=== PATIENT | male | born 1945 | race Caucasian/White ===

== ENCOUNTER → 2020-08-18 | Outpatient (CLI) | payer MEDICARE ==
[~2020-08-18] MED LIST: 00186-0370-20 IH; ARICEPT ODT10 MG PO; ASPIRIN 32325 MG/TAB PO; ASPIRIN E.C. 8181 MG PO; ATIVAN 1MG T1 MG/TAB PO; BENADRYL25 M2 PO; BENICAR40 MG PO; CATAPRES 0.1MG0.1 MG PO; CLARITIN10 MG PO; CLONIDINE0.2 MG PO; COLACE 100100 MG/CAP PO; COREG 25MG25 MG/TAB PO; CRESTOR5 MG PO; FERRO-TIME325 MG PO; FLONASEALLERGY NS; FUROSEMIDE20 MG PO; IMODIUM 2MG CAPS2 MG PO; KLOR-CON 1010 MEQ; KLOR-CON SPRIN10 MEQ PO; LASIX 20MG TABL20 MG PO; LIPITOR20 MG PO; MICARDIS80 MG PO; MILK OF MA400 MG/52; MINOXIDIL 10; NAMENDA 10MG TA10 MG PO; NITROQUICK0.4 MG SL; NITROSTAT0.4 MG/TAB SL; NORVASC 10MG10 MG PO; OMEPRAZOLE40 MG PO; ONE-A-DAY ESSE1 EACH PO; PACERONE200 MG PO; PERCOCET 325 MG1 TA2 PO; PLAVIX 75MG TAB75 MG PO; PRIL40 PO; SYSTANE BALANCE10 M1 OP; TOPROL XL 50MG50 MG PO; TYLENOL 500MG500 MG PO; ULTRAM 50MG TAB50 MG PO; ULTRAM ER100 MG PO; XALATAN EYE DROPS OD; XARELTO20 MG PO; ZOFRAN 4MG T4 MG/TAB PO; ZOLOFT 50MG50 MG PO
[2020-08-18 17:12] LABS: COLLECTION METHOD CLEAN CATCH
[2020-08-18 17:27] LABS: MUCOUS Present /lpf; PH 5 (5-8); SQUAMOUS EPITHELIAL None Seen /hpf; URINE APPEARANCE Clear; URINE BACTERIA None Seen /hpf; URINE BILIRUBIN Negative (NEGATIVE); URINE BLOOD Negative (NEGATIVE); URINE CALCIUM OXALATE CRYSTAL Present /hpf; URINE COLOR Yellow; URINE GLUCOSE Negative (NEGATIVE); URINE KETONE Negative (NEGATIVE); URINE LEUKOCYTE ESTERASE Negative (NEGATIVE); URINE NITRATE Negative (NEGATIVE); URINE PROTEIN(semi-quant) Negative (NEGATIVE); URINE RBC None Seen /hpf; URINE UROBILINOGEN Negative (NEGATIVE)
== END ==
LOC: ZLAB.STJ 15:58
PROVIDERS: Internal Medicine Geriatric Medicine
DX: I25.10 Atherosclerotic heart disease of native coronary artery without angina pectoris (principal)

== ENCOUNTER 2020-09-05 14:42 | Emergency (ER) | payer MEDICARE ==
[~2020-09-05] VITALS: Ht 180.3 cm; Wt 100.0 kg
[2020-09-05 14:42] VITALS: TEMP 98
[~2020-09-05 14:42] MED LIST changes: -00186-0370-20 IH; -ARICEPT ODT10 MG PO; -ATIVAN 1MG T1 MG/TAB PO; -BENADRYL25 M2 PO; -CATAPRES 0.1MG0.1 MG PO; -COREG 25MG25 MG/TAB PO; -CRESTOR5 MG PO; -FERRO-TIME325 MG PO; -IMODIUM 2MG CAPS2 MG PO; -KLOR-CON SPRIN10 MEQ PO; -MICARDIS80 MG PO; -MILK OF MA400 MG/52; -NAMENDA 10MG TA10 MG PO; -NITROSTAT0.4 MG/TAB SL; -ONE-A-DAY ESSE1 EACH PO; -PRIL40 PO; -SYSTANE BALANCE10 M1 OP; -TYLENOL 500MG500 MG PO; -ULTRAM 50MG TAB50 MG PO; -ULTRAM ER100 MG PO; -XALATAN EYE DROPS OD; -ZOLOFT 50MG50 MG PO
[2020-09-05] MEDS ORDERED: ATIVAN 1MG T1 MG/TAB PO (15:29)
[2020-09-05] MEDS ORDERED: BENADRYL25 M2 PO (15:30)
[2020-09-05] MEDS ORDERED: SYSTANE BALANCE10 M1 OP (15:30)
[2020-09-05] MEDS ORDERED: ULTRAM 50MG TAB50 MG PO (15:32)
[2020-09-05] MEDS ORDERED: ULTRAM ER100 MG PO (15:33)
[2020-09-05 15:35] LABS: BASO % 0.5 % (0.0-2.0); EOS # 0.1 (0.0-0.7); EOS % 2.1 % (0-4.0); GRAN # 3.1 (1.4-6.5); GRAN % 70.9 % (42.2-75.2); HEMATOCRIT 40.7 % (42.0-52.0); HEMOGLOBIN 11.7 g/dl (13.5-18.0); LYMPH # 0.8 (1.2-3.4); LYMPH % 17.4 % (20.0-51.0); MEAN CELL VOLUME 82 fl (80.0-100.0); MEAN CORPUSCULAR HEMOGLOBIN 24 pg (27.0-31.0); MEAN CORPUSCULAR HGB CONC 29 g/dl (33.0-37.0); MEAN PLATELET VOLUME 10.6 fl (7.4-10.4); MONO # 0.4 (0.1-0.6); MONO % 8.9 % (1.7-9.3); PLATELET COUNT 143 K/mm3 (130-400); RED BLOOD COUNT 4.97 M/mm3 (4.20-5.60); REDCELL DISTRIBUTION WIDTH-CV 22.3 % (11.5-14.5)
[2020-09-05] MEDS ORDERED: IMODIUM 2MG CAPS2 MG PO (15:35)
[2020-09-05] MEDS ORDERED: TYLENOL 500MG500 MG PO (15:35)
[2020-09-05] MEDS ORDERED: XARELTO20 MG PO (15:35)
[2020-09-05] MEDS ORDERED: NITROSTAT0.4 MG/TAB SL (15:36)
[2020-09-05] MEDS ORDERED: LASIX 20MG TABL20 MG PO (15:39)
[2020-09-05] MEDS ORDERED: KLOR-CON SPRIN10 MEQ PO (15:39)
[2020-09-05] MEDS ORDERED: PRIL40 PO (15:39)
[2020-09-05] MEDS ORDERED: MICARDIS80 MG PO (15:41)
[2020-09-05] MEDS ORDERED: CRESTOR5 MG PO (15:41)
[2020-09-05] MEDS ORDERED: ZOLOFT 50MG50 MG PO (15:41)
[2020-09-05] MEDS ORDERED: ONE-A-DAY ESSE1 EACH PO (15:42)
[2020-09-05] MEDS ORDERED: MILK OF MA400 MG/52 (15:42)
[2020-09-05] MEDS ORDERED: NAMENDA 10MG TA10 MG PO (15:42)
[2020-09-05] MEDS ORDERED: FERRO-TIME325 MG PO (15:43)
[2020-09-05] MEDS ORDERED: XALATAN EYE DROPS OD (15:43)
[2020-09-05] MEDS ORDERED: CATAPRES 0.1MG0.1 MG PO (15:44)
[2020-09-05] MEDS ORDERED: COLACE 100100 MG/CAP PO (15:44)
[2020-09-05] MEDS ORDERED: ARICEPT ODT10 MG PO (15:44)
[2020-09-05 15:45] LABS: ALBUMIN 3.7 gm/dL (3.5-5.0); BILIRUBIN,TOTAL 0.6 mg/dL (0.0-1.0); CALCIUM 9.2 mg/dL (8.4-10.2); CREATININE, serum 1.09 (0.66-1.25); POTASSIUM 3.2 mmol/L (3.4-5.0); TOTAL PROTEIN 6.6 gm/dL (6.4-8.2)
[2020-09-05] MEDS ORDERED: COREG 25MG25 MG/TAB PO (15:45)
[2020-09-05] MEDS ORDERED: 00186-0370-20 IH (15:45)
[2020-09-05 15:57] LABS: TROPONIN-I 0.027 ng/mL (0.000-0.035)
[2020-09-05 16:18] LABS: MUCOUS Present /lpf; PH 5 (5-8); SQUAMOUS EPITHELIAL 0-2 /hpf; URINE APPEARANCE Hazy; URINE BACTERIA None Seen /hpf; URINE BILIRUBIN Negative (NEGATIVE); URINE BLOOD Negative (NEGATIVE); URINE COLOR Amber; URINE GLUCOSE Negative (NEGATIVE); URINE KETONE Negative (NEGATIVE); URINE LEUKOCYTE ESTERASE Negative (NEGATIVE); URINE NITRATE Negative (NEGATIVE); URINE PROTEIN(semi-quant) 2+ (NEGATIVE); URINE RBC 0-2 /hpf
[2020-09-05 16:30] LABS: COLLECTION METHOD CLEAN CATCH
[2020-09-05 16:49] VITALS: BP 147/93; PULSE 66
== END 2020-09-05 17:00 | disposition home or self-care (01) ==
LOC: COL.ER 14:42
PROVIDERS: Emergency Medicine
DX: R41.82 Altered mental status, unspecified (principal); F03.90 Unspecified dementia, unspecified severity, without behavioral disturbance, psychotic disturbance, mood disturbance, and anxiety; Z88.0 Allergy status to penicillin; Z87.891 Personal history of nicotine dependence; Z79.01 Long term (current) use of anticoagulants; Z79.51 Long term (current) use of inhaled steroids; Z79.899 Other long term (current) drug therapy

== ENCOUNTER 2021-05-22 20:01 | Inpatient (IN) | payer MEDICARE ==
[~2021-05-22] VITALS: Wt 166.2 kg
[~2021-05-22 20:01] MED LIST changes: +00186-0370-20 IH; +ARICEPT ODT10 MG PO; +ATIVAN 1MG T1 MG/TAB PO; +BENADRYL25 M2 PO; +CATAPRES 0.1MG0.1 MG PO; +COREG 25MG25 MG/TAB PO; +CRESTOR5 MG PO; +FERRO-TIME325 MG PO; +IMODIUM 2MG CAPS2 MG PO; +KLOR-CON SPRIN10 MEQ PO; +MICARDIS80 MG PO; +MILK OF MA400 MG/52; +NAMENDA 10MG TA10 MG PO; +NITROSTAT0.4 MG/TAB SL; +ONE-A-DAY ESSE1 EACH PO; +PRIL40 PO; +SYSTANE BALANCE10 M1 OP; +TYLENOL 500MG500 MG PO; +ULTRAM 50MG TAB50 MG PO; +ULTRAM ER100 MG PO; +XALATAN EYE DROPS OD; +ZOLOFT 50MG50 MG PO
[2021-05-22 20:27] LABS: BASO % 0.2 % (0.0-2.0); EOS % 0.2 % (0.0-4.0); GRAN # 4.7 K/mm3 (1.4-6.5); GRAN % 86.8 % (42.2-75.2); HEMOGLOBIN 11.2 g/dl (13.5-18.0); LYMPH # 0.2 K/mm3 (1.2-3.4); LYMPH % 4.1 % (20.0-51.0); MEAN CELL VOLUME 86 fl (80.0-100.0); MEAN CORPUSCULAR HEMOGLOBIN 27 pg (27-31); MEAN CORPUSCULAR HGB CONC 31 g/dl (33.0-37.0); MEAN PLATELET VOLUME 10.1 fl (7.4-10.4); MONO # 0.5 K/mm3 (0.1-0.6); MONO % 8.3 % (1.7-9.3); PLATELET COUNT 128 K/mm3 (130-400); RED BLOOD COUNT 4.21 M/mm3 (4.20-5.60)
[2021-05-22 20:32] LABS: INR 2.6 (0.8-3.0); PROTHROMBIN TIME 29.6 SECONDS (9.7-12.8)
[2021-05-22 20:43] LABS: COLLECTION METHOD CLEAN CATCH
[2021-05-22 20:45] LABS: ALBUMIN 3.5 gm/dL (3.4-4.8); BILIRUBIN,TOTAL 0.7 mg/dL (0.2-1.2); C-REACTIVE PROTEIN 3.25 mg/dL (0.00-0.50); CALCIUM 8.8 mg/dL (8.4-10.2); CREATININE, serum 0.88 mg/dL (0.72-1.25); POTASSIUM 3.2 mmol/L (3.5-4.5); TOTAL PROTEIN 6.3 gm/dL (6.2-8.1)
[2021-05-22] MEDS ORDERED: ALLEGRA 180MG180 MG PO (20:45)
[2021-05-22] MEDS ORDERED: ASPIRIN 81M81 MG/TA2 PO (20:45)
[2021-05-22 20:48] LABS: MUCOUS Present (NOT PRESENT); PH 5 (5-8); SQUAMOUS EPITHELIAL None Seen /hpf (0-10); URINE APPEARANCE Clear (CLEAR/HAZY); URINE BACTERIA None Seen /hpf (NONE SEEN); URINE BILIRUBIN Negative (NEGATIVE); URINE BLOOD Negative (NEGATIVE); URINE COLOR Yellow (YELLOW); URINE GLUCOSE Negative (NEGATIVE); URINE KETONE Negative (NEGATIVE); URINE LEUKOCYTE ESTERASE Negative (NEGATIVE); URINE NITRATE Negative (NEGATIVE); URINE PROTEIN(semi-quant) Negative (NEGATIVE); URINE RBC 0-2 /hpf (0-2); URINE UROBILINOGEN Negative (NEGATIVE)
[2021-05-22] MEDS ORDERED: CRESTOR5 MG PO (20:48)
[2021-05-22] MEDS ORDERED: MICARDIS80 MG PO (20:50)
[2021-05-22] MEDS ORDERED: MELATIN 3 MG-11 TAB PO (20:50)
[2021-05-22] MEDS ORDERED: MIRALAX PA17 GM/Dose PO (20:51)
[2021-05-22] MEDS ORDERED: MINIPRESS2 MG PO (20:51)
[2021-05-22] MEDS ORDERED: NORVASC 5MG5 MG/TAB PO (20:52)
[2021-05-22] MEDS ORDERED: K-TAB10 PO (20:53)
[2021-05-22] MEDS ORDERED: SEROQUEL XR50 MG PO (20:54)
[2021-05-22] MEDS ORDERED: SEROQUEL 2525 MG/TAB PO (20:54)
[2021-05-22 20:55] LABS: TROPONIN-I 0.047 ng/mL (0.00-0.033)
[2021-05-22] MEDS ORDERED: SYSTANE 0.4%-0.1 SOL OP (20:55)
[2021-05-22] MEDS ORDERED: DESYREL 100MG100 MG PO (20:56)
[2021-05-22] MEDS ORDERED: ZOLOFT 50MG50 MG PO (20:57)
[2021-05-22] MEDS ORDERED: XALATAN EYE DROPS OD (20:57)
[2021-05-22] MEDS ORDERED: ZYPREXA20 MG PO (20:58)
[2021-05-22] MEDS ORDERED: ZYPREXA 5MG5 MG PO (20:58)
[2021-05-22] MEDS ORDERED: XARELTO20 MG PO (20:58)
[2021-05-22] MEDS ORDERED: ULTRAM 50MG TAB50 MG PO (22:14)
[2021-05-22] MEDS ORDERED: BIOFREEZE 0.2%-1 GE1 TOP (22:15)
[2021-05-22] MEDS ORDERED: CBD TOP (22:15)
[2021-05-22] MEDS ORDERED: CBD PO (22:16)
[2021-05-22 23:59] VITALS: BP 155/52; PULSE 67; TEMP 98.8
--- NOTE | 2021-05-23 00:30 | NUR ---
Patient arrived to the unit in bed, alert but disoriented. Medications provided, NS started 75ml/hr. Fall precautions started, telemetry placed. Pt unable to follow comands or answer questions. Random speach. Right now resting. Continue monitoring.
[2021-05-23 04:20] LABS: GRAN # 2.7 K/mm3 (1.4-6.5); GRAN % 83.9 % (42.2-75.2); LYMPH # 0.3 K/mm3 (1.2-3.4); LYMPH % 8.2 % (20.0-51.0); MEAN CELL VOLUME 86 fl (80.0-100.0); MEAN CORPUSCULAR HGB CONC 31 g/dl (33.0-37.0); MEAN PLATELET VOLUME 11.3 fl (7.4-10.4); MONO # 0.2 K/mm3 (0.1-0.6); MONO % 7.6 % (1.7-9.3); PLATELET COUNT 103 K/mm3 (130-400); RED BLOOD COUNT 3.72 M/mm3 (4.20-5.60); REDCELL DISTRIBUTION WIDTH-CV 19.4 % (11.5-14.5)
[2021-05-23 04:21] LABS: HEMATOCRIT 31.9 % (42.0-52.0); HEMOGLOBIN 9.9 g/dl (13.5-18.0); MEAN CORPUSCULAR HEMOGLOBIN 27 pg (27-31)
[2021-05-23 04:26] VITALS: BP 127/47; PULSE 63; TEMP 102.6
[2021-05-23 04:26] LABS: INR 2.9 (0.8-3.0); PROTHROMBIN TIME 32.3 SECONDS (9.7-12.8)
[2021-05-23 04:51] LABS: ARTERIAL BLD GAS O2 SATURATION 95.9 % (92-100); ARTERIAL BLD GAS TCO2 CT 25.7; ARTERIAL BLOOD GAS BASE EXCESS 2.4 (-2-2); ARTERIAL BLOOD GAS HCO3 24.8 meq/L (22-26); ARTERIAL BLOOD GAS PCO2 30.8 mmHg (35-45); ARTERIAL BLOOD GAS PO2 73.7 mmHg (80-100); ARTERIAL BLOOD GAS pH 7.52 (7.35-7.45)
[2021-05-23 05:17] LABS: BILIRUBIN,TOTAL 0.6 mg/dL (0.2-1.2); CALCIUM 8.6 mg/dL (8.4-10.2); CREATININE, serum 0.79 mg/dL (0.72-1.25); POTASSIUM 3.1 mmol/L (3.5-4.5); TOTAL PROTEIN 5.4 gm/dL (6.2-8.1)
[2021-05-23 05:22] LABS: TROPONIN-I 6 HR POST INITIAL 0.064 ng/mL (0.00-0.033)
--- NOTE | 2021-05-23 05:30 | NUR ---
PT with fever, suppository Tylenol provided. While removing the brief, noticed coagulated blood around the penis. Hygiene provided. No further fresh blood noticed.
--- NOTE | 2021-05-23 06:32 | NUR ---
Pt received all his medications once arrived to the unit. He has been drowsy and difficult to arouse, reported to Joyce. No more PO Meds provided. Report will be given to day RN.
[2021-05-23 08:33] VITALS: BP 125/43; PULSE 61; TEMP 102.9
--- NOTE | 2021-05-23 11:04 | NUR ---
PT RESTING IN BED. MORNING MEDICATIONS GIVEN. SHIFT ASSESSMENT COMPLETED. RN UNABLE TO AROUSE PT, HE DOES RESPOND TO PAIN. VSS. PASSED A LARGE BLOOD CLOT FROM PENIS, WILL NOTIFY PROVIDER. CONTINUING TO MONITOR.
[2021-05-23 11:52] VITALS: BP 125/51; PULSE 67; TEMP 101.1
--- NOTE | 2021-05-23 12:20 | NUR ---
Plan is for patient to return to [facility] when able. SW called the memory care to find out what their protocols are for Covid Positive Patients. Nurse at the Memory unit indicated that she does not know and najma call patient case manager back with information. SW spoke with on discharge to the unit. reports that there is not enough staff at the nit to care for the patient and that they have cameras in the grabiel and noticed no one had been in to change the patient and or care for the patient for the entire day on tuesday and that is what initial brought her to have the patient brought to the hospital. indicated that she is doing Chemo and she can not go in and help out the patient. Educated that we can not approve client to stay if he does have a safe and appropriate transfer facility. Educated that we are waiting on what that facility has available to take care of patient in at the memory unit. Will follow up with and Memory Unit.
[2021-05-23 15:56] VITALS: BP 140/68; PULSE 78; TEMP 98.1
[2021-05-23 20:17] VITALS: BP 137/64; PULSE 66; TEMP 97.7
[2021-05-24 00:24] VITALS: BP 157/60; PULSE 60; TEMP 99.1
[2021-05-24 04:34] VITALS: BP 169/69; PULSE 69; TEMP 99.2
--- NOTE | 2021-05-24 05:34 | NUR ---
pt with low grade temps this shift, remains lethargic not taking anything by mouth, all po meds held, not swallowing saliva, turned side to side q2, de la fuente continues to drain dark socorro urine with streaks of blood present. IVF infusing per piv @75cc/hr. updated pt's per phone last evening, she does not want pt dismissed until the blood in urine is looked into further.
[2021-05-24 07:40] VITALS: BP 166/80; PULSE 68; TEMP 98.1
--- NOTE | 2021-05-24 10:25 | NUR ---
PT RESTING IN BED. MORNING MEDICATIONS GIVEN. SHIFT ASSESSMENT COMPLETED. PT DOES NOT RESPOND TO QUESTIONS OR FOLLOW COMMANDS. NS RUNNING AT 50ML/HR. CONTINUING TO MONITOR.
[2021-05-24 11:53] VITALS: BP 138/60; PULSE 59; TEMP 97.2
[2021-05-24 15:55] VITALS: BP 153/70; PULSE 70; TEMP 97.8
[2021-05-24 20:39] VITALS: BP 168/70; PULSE 61; TEMP 98
--- NOTE | 2021-05-24 21:53 | NUR ---
Patient resting in bed with eyes closed. Patient drowsy and difficutly to arouse. Patient does not follow commands or answer any questions. PO meds not able to give due to patient not alert enough to take meds. NS running at 50ml/hr per MAR. Perez catheter patent and draining bloody urine. Call light in reach. Will continue to monitor.
[2021-05-25 00:03] VITALS: BP 175/63; PULSE 67; TEMP 98
[2021-05-25 04:28] VITALS: BP 146/65; PULSE 62; TEMP 97.9
--- NOTE | 2021-05-25 04:38 | NUR ---
Patient's BP 175/63 at midnight. Patient resting in bed comfortably. Does not appear to be symptomatic. PRN hydralazine 10mg IV given per MAR. BP 146/65, HR 62 at 4am. Call light in reach. Bed alarms on. Will continue to monitor.
[2021-05-25 07:27] LABS: HEMOGLOBIN 10.4 g/dl (13.5-18.0); MEAN CELL VOLUME 85 fl (80.0-100.0); MEAN CORPUSCULAR HEMOGLOBIN 27 pg (27-31); MEAN CORPUSCULAR HGB CONC 32 g/dl (33.0-37.0); MEAN PLATELET VOLUME 11.3 fl (7.4-10.4); PLATELET COUNT 91 K/mm3 (130-400); RED BLOOD COUNT 3.81 M/mm3 (4.20-5.60)
[2021-05-25 07:30] LABS: HEMATOCRIT 32.5 % (42.0-52.0)
[2021-05-25 07:37] LABS: CALCIUM 8.3 mg/dL (8.4-10.2); CREATININE, serum 0.68 mg/dL (0.72-1.25); MAGNESIUM 1.9 mg/dL (1.6-2.6); POTASSIUM 3.6 mmol/L (3.5-4.5)
[2021-05-25 07:59] VITALS: BP 191/68; PULSE 62; TEMP 97.8
[2021-05-25 08:44] LABS: LYMPHOCYTE 34 % (20.0-51.0); NEUTROPHILS 54 % (42.0-75.2); OVALOCYTES 2+; PLATELET ESTIMATE DECREASED (NORMAL)
--- NOTE | 2021-05-25 11:22 | NUR ---
Scheduled medications given. Shift assessment performed. Patient very drowsy, and not oriented. Unable to follow commands. Currently on RA. BP elevated, prn medication given. All other VSS. No s/s of pain or discomfort at this time. Perez catheter in place. Securement device in use, no kinks in tubing. Call light in reach. Fall percautions in place.
[2021-05-25 11:35] VITALS: BP 134/69; PULSE 60; TEMP 97.5
--- NOTE | 2021-05-25 13:31 | NUR ---
PANCHO faxed updates to Marian at [facility].
[2021-05-25 15:40] VITALS: BP 133/59; PULSE 60; TEMP 97.5
--- NOTE | 2021-05-25 17:48 | NUR ---
Patient has had an uneventful day. VSS. Patient tired, but arousable. No s/s of pain or discomfort. Fall percautions in place. Perez in place. Securement device in use, no kinks in tubing. Call light in reach.
[2021-05-25 20:22] VITALS: BP 140/63; PULSE 61; TEMP 98.5
--- NOTE | 2021-05-26 00:20 | NUR ---
Patient resting in bed with eyes closed. Patient appears very tired and drowsy. Patient arousable with verbal and tactile stimulation. Patient not oriented. Patient does not follow commands or answer questions. All scheduled meds crushed and mixed in apple sauce. Patient took medications without difficulty. Perez patent and draining well. Call light in reach. Bed alarms on. Will continue to monitor.
[2021-05-26 00:57] VITALS: BP 135/61; PULSE 61; TEMP 97.6
[2021-05-26 04:23] VITALS: BP 147/66; PULSE 74; TEMP 97.6
[2021-05-26 08:19] VITALS: BP 140/69; PULSE 64; TEMP 97.8
[2021-05-26 11:14] VITALS: BP 137/66; PULSE 86; TEMP 97.6
--- NOTE | 2021-05-26 11:41 | NUR ---
Scheduled medications given. Shift assessment performed. Patient alseep, but is able to be aroused. Perez catheter in place, securment device in use, no kinks in tubing. No s/s of pain, discomfort, SOA, or further needs at this time. Call light in reach. VSS. Fall percautions in place.
--- NOTE | 2021-05-26 11:51 | NUR ---
The hospitalist notified PANCHO that the patient may be ready to discharge tomorrow, 05/27. PANCHO contacted [facility] to notify. The licensing officer answered and reports that she will notify his RN's of this. She reports that his RN's are out at this time. PANCHO attempted to contact the patient's , Ulises, to update. PANCHO left her a voicemail. [facility] faxed [facility] updates.
--- NOTE | 2021-05-26 12:39 | NUR ---
The patient's , Ulises, returned PANCHO's phone call. PANCHO informed her of possible discharge tomorrow. Ulises verbalized understanding and was in agreement to the plan.
[2021-05-26 16:00] VITALS: BP 147/66; PULSE 86; TEMP 97
--- NOTE | 2021-05-26 18:12 | NUR ---
Patient has had an ok day. More alert today than in previous shifts. Not oriented. Perez catheter DC'd, balloon intact. No s/s of pain, discomfort, SOA, or further needs at this time. Call light in reach. VSS. Fall percautions in place.
[2021-05-26 20:47] VITALS: BP 150/70; PULSE 65; TEMP 97.9
--- NOTE | 2021-05-26 22:07 | NUR ---
Yumi resting in bed with eyes closed upon enter the room. Patient easily arousable with verbal stimulation. Patient is more alert tonight than previous two nights. Patient not oriented. Not following directions or anwering questions. Patient has some random speaking doesn't make sense. Assisted patient to have dinner. Patient drank 1 bottle of Ensure and some food. Medications crushed and mixed in pudding. Patient took medications without difficulty. Brief dry and clean at this time. Call light in reach. Bed alarms on. Fall precaution maintained. Will continue to monitor.
[2021-05-27 00:18] VITALS: BP 134/69; PULSE 66; TEMP 97.7
[2021-05-27 04:16] VITALS: BP 138/65; PULSE 70; TEMP 97.8
--- NOTE | 2021-05-27 05:31 | NUR ---
Patient had large void this morning. Incontinent brief changed and kisha-care provided. Patient repositioned at this time. Call light in reach. Bed alarms on. Will continue to monitor.
[2021-05-27 08:18] VITALS: BP 111/52; PULSE 64; TEMP 98.4
[2021-05-27 09:22] LABS: HEMOGLOBIN 11.4 g/dl (13.5-18.0); MEAN CELL VOLUME 86 fl (80.0-100.0); MEAN CORPUSCULAR HEMOGLOBIN 27 pg (27-31); MEAN CORPUSCULAR HGB CONC 31 g/dl (33.0-37.0); MEAN PLATELET VOLUME 10.7 fl (7.4-10.4); PLATELET COUNT 117 K/mm3 (130-400); RED BLOOD COUNT 4.25 M/mm3 (4.20-5.60); REDCELL DISTRIBUTION WIDTH-CV 18.4 % (11.5-14.5)
[2021-05-27 09:25] LABS: HEMATOCRIT 36.5 % (42.0-52.0)
[2021-05-27 09:33] LABS: C-REACTIVE PROTEIN 1.51 mg/dL (0.00-0.50); CALCIUM 8.6 mg/dL (8.4-10.2); CREATININE, serum 0.61 mg/dL (0.72-1.25); MAGNESIUM 2.2 mg/dL (1.6-2.6); POTASSIUM 3.7 mmol/L (3.5-4.5)
[2021-05-27 10:37] LABS: BAND 3 % (0-10); LYMPHOCYTE 29 % (20.0-51.0); METAMYELOCYTE 2 % (0-0); NEUTROPHILS 58 % (42.0-75.2)
[2021-05-27 10:38] LABS: OVALOCYTES 2+; PLATELET ESTIMATE DECREASED (NORMAL)
[2021-05-27] MEDS ORDERED: NORVASC 10MG10 MG PO (11:04)
[2021-05-27] MEDS ORDERED: DECADRON6 MG PO (11:19)
[2021-05-27 11:45] VITALS: BP 149/66; PULSE 64; TEMP 97.8
--- NOTE | 2021-05-27 13:32 | NUR ---
The clinical team is ready to discharge the patient today. PANCHO notified Monae at [facility]. Monae reports that they are able to take the patient back today. The patient is to discharge today, 05/27, back to [facility]. [facility] PANCHO informed the patient's RN and his , Ulises, of the time. PANCHO also read the IM form outloud to Ulises over the phone. Ulises verbalized understanding and gave PANCHO approval to sign the form on her behalf. No additional needs at this time.
[2021-05-27 14:21] VITALS: BP 149/66; PULSE 64; TEMP 97.8
--- NOTE | 2021-05-27 15:17 | NUR ---
Scheduled medications given. Shift assessment performed. Patient currently on RA. No s/s of pain or discomfort. VSS. Patient Alert, but not oriented. Combative during cares. Patient transferred to wheelchair with assistance. Patient unable to stand and help with transfers. Patient escorted from the building by [facility] staff and [facility] staff. [facility] staff transfering. Report called to HARDIK Licona.
== END 2021-05-27 15:20 | disposition home or self-care (01) | DRG 177 ==
LOC: COL.ER 20:01 → MEDICAL 21:46
PROVIDERS: Nurse Practitioner; Nurse Practitioner Family; ADMIT Internal Medicine
DX: U07.1 COVID-19 (principal); J12.82 Pneumonia due to coronavirus disease 2019; F03.91 Unspecified dementia, unspecified severity, with behavioral disturbance; G93.40 Encephalopathy, unspecified; T83.83XA Hemorrhage due to genitourinary prosthetic devices, implants and grafts, initial encounter; I48.91 Unspecified atrial fibrillation; E78.5 Hyperlipidemia, unspecified; I11.0 Hypertensive heart disease with heart failure; I25.10 Atherosclerotic heart disease of native coronary artery without angina pectoris; I50.9 Heart failure, unspecified; G47.30 Sleep apnea, unspecified; K21.9 Gastro-esophageal reflux disease without esophagitis; Z66 Do not resuscitate; G89.29 Other chronic pain; F32.A Depression, unspecified; G47.00 Insomnia, unspecified; R31.9 Hematuria, unspecified; E87.6 Hypokalemia; F41.1 Generalized anxiety disorder; H40.9 Unspecified glaucoma; Y73.1 Therapeutic (nonsurgical) and rehabilitative gastroenterology and urology devices associated with adverse incidents; Z95.5 Presence of coronary angioplasty implant and graft; Z95.0 Presence of cardiac pacemaker; Z88.0 Allergy status to penicillin; Z87.891 Personal history of nicotine dependence; Z79.82 Long term (current) use of aspirin
CPT/HCPCS: 99222-AI; 99232-AI; 99233-AI; 99239; J0360; J0696; J3480; J7030; J8540

== ENCOUNTER 2021-07-17 12:42 | Emergency (ER) | payer MEDICARE ==
[~2021-07-17 12:42] MED LIST changes: +ALLEGRA 180MG180 MG PO; +ASPIRIN 81M81 MG/TA2 PO; +BIOFREEZE 0.2%-1 GE1 TOP; +CBD PO; +CBD TOP; +DECADRON6 MG PO; +DESYREL 100MG100 MG PO; +K-TAB10 PO; +MELATIN 3 MG-11 TAB PO; +MINIPRESS2 MG PO; +MIRALAX PA17 GM/Dose PO; +NORVASC 5MG5 MG/TAB PO; +SEROQUEL 2525 MG/TAB PO; +SEROQUEL XR50 MG PO; +SYSTANE 0.4%-0.1 SOL OP; +ZYPREXA 5MG5 MG PO; +ZYPREXA20 MG PO
[2021-07-17 12:44] VITALS: TEMP 98.5
[2021-07-17 13:25] VITALS: BP 142/80; PULSE 80
== END 2021-07-17 13:25 ==
LOC: COL.ER 12:42
DX: R04.0 Epistaxis (principal); F03.90 Unspecified dementia, unspecified severity, without behavioral disturbance, psychotic disturbance, mood disturbance, and anxiety; Z79.01 Long term (current) use of anticoagulants; Z91.040 Latex allergy status

== ENCOUNTER 2021-08-21 12:24 | Observation (INO) | payer MEDICARE ==
[~2021-08-21] VITALS: Ht 182.9 cm; Wt 79.5 kg
[2021-08-21 12:55] LABS: BASO % 0.4 % (0.0-2.0); GRAN # 1.8 K/mm3 (1.4-6.5); GRAN % 75.6 % (42.2-75.2); LYMPH # 0.3 K/mm3 (1.2-3.4); MEAN CELL VOLUME 87 fl (80.0-100.0); MEAN CORPUSCULAR HGB CONC 30 g/dl (33.0-37.0); MEAN PLATELET VOLUME 10.3 fl (7.4-10.4); MONO # 0.3 K/mm3 (0.1-0.6); MONO % 11.6 % (1.7-9.3); PLATELET COUNT 151 K/mm3 (130-400); RED BLOOD COUNT 3.36 M/mm3 (4.20-5.60); REDCELL DISTRIBUTION WIDTH-CV 15.8 % (11.5-14.5)
[2021-08-21 12:56] LABS: HEMATOCRIT 29.1 % (42.0-52.0); HEMOGLOBIN 8.8 g/dl (13.5-18.0); MEAN CORPUSCULAR HEMOGLOBIN 26 pg (27-31)
[2021-08-21 13:10] LABS: CALCIUM 8.3 mg/dL (8.4-10.2); CREATININE, serum 0.77 mg/dL (0.72-1.25); POTASSIUM 3.5 mmol/L (3.5-4.5)
[2021-08-21 13:55] LABS: COLLECTION METHOD CATHETER
[2021-08-21 14:08] LABS: MUCOUS Present (NOT PRESENT); PH 6 (5-8); SQUAMOUS EPITHELIAL 0-2 /hpf (0-10); URINE APPEARANCE Hazy (CLEAR/HAZY); URINE BACTERIA Occasional /hpf (NONE SEEN); URINE BILIRUBIN Negative (NEGATIVE); URINE BLOOD 1+ (NEGATIVE); URINE COLOR Yellow (YELLOW); URINE GLUCOSE Negative (NEGATIVE); URINE KETONE Negative (NEGATIVE); URINE LEUKOCYTE ESTERASE 2+ (NEGATIVE); URINE NITRATE Positive (NEGATIVE); URINE PROTEIN(semi-quant) Negative (NEGATIVE); URINE RBC 0-2 /hpf (0-2); URINE UROBILINOGEN Negative (NEGATIVE)
--- NOTE | 2021-08-21 17:48 | NUR ---
PATIENT RECIEVED FROM ED. A&O X2, SLIGHT CONFUSION NOTED. PATIENT DOES HAVE KNOWN DEMENTIA. INFORMED OF 2 HEALING PRESSURE SORES TO BUTTOCK AREA. NO OTHER SKIN ISSUES AT THIS TIME. INCONTIENT. ABLE TO AMUBLATE ON OWN BUT VERY UNSTEADY, WILL USE BED ALARMS FOR SAFETY. DOES HAVE HISTORY OF COMBATIVE BEHAVIOR AT TIMES.
[2021-08-21 19:37] VITALS: BP 144/53; PULSE 63; TEMP 98.7
[2021-08-22 03:54] VITALS: BP 142/73; PULSE 64; TEMP 98
--- NOTE | 2021-08-22 05:19 | NUR ---
THIS NURSE HUNG D5 1/2 NS THIS SHIFT IT WAS SCANNED PREVIOUS SHIFT BUT NOT GIVEN REGARDLESS OF YES ON ADMINISTRATION NOR WAS IT REPORTED TO THIS NURSE. PT HAS COMMENCED D5 1/2 NS OF 399 THIS AM.
[2021-08-22 06:20] LABS: BASO % 0.5 % (0.0-2.0); EOS % 0.5 % (0.0-4.0); GRAN # 1.4 K/mm3 (1.4-6.5); GRAN % 63.7 % (42.2-75.2); LYMPH # 0.5 K/mm3 (1.2-3.4); LYMPH % 20.4 % (20.0-51.0); MEAN CELL VOLUME 86 fl (80.0-100.0); MEAN CORPUSCULAR HGB CONC 30 g/dl (33.0-37.0); MONO # 0.3 K/mm3 (0.1-0.6); MONO % 14.9 % (1.7-9.3); PLATELET COUNT 135 K/mm3 (130-400); RED BLOOD COUNT 3.25 M/mm3 (4.20-5.60); REDCELL DISTRIBUTION WIDTH-CV 15.7 % (11.5-14.5)
[2021-08-22 06:25] LABS: HEMATOCRIT 27.8 % (42.0-52.0); HEMOGLOBIN 8.3 g/dl (13.5-18.0); MEAN CORPUSCULAR HEMOGLOBIN 26 pg (27-31)
--- NOTE | 2021-08-22 06:32 | NUR ---
PT HAD UNEVENTFUL NIGHT LAST NIGHT, PT COOPERATIVE AND PLEASANT, PT CLEANED AND DRIED, LINENS CHANGED. PT REPOSITIONED Q2. ALL NEEDS MET.
[2021-08-22 06:38] LABS: CALCIUM 8.4 mg/dL (8.4-10.2); CREATININE, serum 0.62 mg/dL (0.72-1.25); POTASSIUM 3.4 mmol/L (3.5-4.5)
[2021-08-22 08:02] VITALS: BP 146/77; PULSE 84; TEMP 99.2
[2021-08-22 08:37] VITALS: BP 145/70; PULSE 62; TEMP 98.5
--- NOTE | 2021-08-22 08:39 | NUR ---
Assessment completed, patient is lethargic / he will somewhat open his eyes to light touch and voice but does not stay awake, vital signs are stable, does not appear to be in any acute pain or discomfort, breathing is easy and non-labored, lungs are CTA, heart RRR/AV paced on tele, distal pulses are palpable, patient not awake enought at this time to take PO meds or PO intake in general/ will try again in a while if he becomes more alert, bed alarm is on, call light in reach, he is clean and dry at this time, will continue to monitor
[2021-08-22 13:30] VITALS: BP 151/59; PULSE 61; TEMP 98.4
--- NOTE | 2021-08-22 14:50 | NUR ---
SW met with pt to complete intake,daughter was present and answered all questions due to pt has dementia. The pt lives at [facility]. He has a , but she is sick with 1st stage cancer. His DPOA-HC is his daughter griffin, [phone] and she is a nurse. She reports she has two other sister but they are not involved and not speaking to there parents. She reports he needs help with dressing and sometimes eating (forgets how to use a fork). His PCP is Dr. Rodriguez and gets medications from [facility]. Griffin expressed that she would like her father to be moved to [place] since his lives in [place]. DC: Bk to [facility]??
--- NOTE | 2021-08-22 15:38 | NUR ---
SW faxed referral to [place] for pt daughter just incase she wants to moved pt from [facility] on her own.
[2021-08-22 18:05] VITALS: BP 130/47; PULSE 60; TEMP 97.9
[2021-08-22 20:19] VITALS: BP 138/59; PULSE 59; TEMP 97.6
[2021-08-23 00:02] VITALS: BP 146/68; PULSE 61; TEMP 97.7
[2021-08-23 05:11] VITALS: BP 162/72; PULSE 71; TEMP 97.5
--- NOTE | 2021-08-23 05:30 | NUR ---
PT HAD UNEVENTFUL NIGHT THIS SHIFT, SLEPT MAJORITY OF THE SHIFT. PT REPOSITONED Q2. PT PROVIDED BED BATH THIS SHIFT.COGNITIVE REMAINS THE SAME. ALL NEEDS MET THIS SHIFT. BED ALARM ON. PT VISIBLE TO NURSES STATION.
[2021-08-23 06:15] LABS: BASO % 0.4 % (0.0-2.0); EOS # 0.1 K/mm3 (0.0-0.7); EOS % 2.4 % (0.0-4.0); GRAN # 1.3 K/mm3 (1.4-6.5); LYMPH # 0.7 K/mm3 (1.2-3.4); LYMPH % 26.9 % (20.0-51.0); MEAN CELL VOLUME 88 fl (80.0-100.0); MEAN CORPUSCULAR HGB CONC 30 g/dl (33.0-37.0); MEAN PLATELET VOLUME 10.8 fl (7.4-10.4); MONO # 0.5 K/mm3 (0.1-0.6); MONO % 18.9 % (1.7-9.3); PLATELET COUNT 137 K/mm3 (130-400); RED BLOOD COUNT 3.73 M/mm3 (4.20-5.60); REDCELL DISTRIBUTION WIDTH-CV 15.4 % (11.5-14.5)
[2021-08-23 06:17] LABS: HEMATOCRIT 32.7 % (42.0-52.0); HEMOGLOBIN 9.8 g/dl (13.5-18.0); MEAN CORPUSCULAR HEMOGLOBIN 26 pg (27-31)
[2021-08-23 06:30] LABS: CALCIUM 8.2 mg/dL (8.4-10.2); CREATININE, serum 0.64 mg/dL (0.72-1.25); POTASSIUM 3.9 mmol/L (3.5-4.5)
[2021-08-23 07:37] VITALS: BP 173/79; PULSE 58; TEMP 97.7
--- NOTE | 2021-08-23 08:16 | NUR ---
Assessment completed, patient drowsny but more easily arousable today, he does not appear to be in any acute pain or discomfort, vital signs remain stable, heart RRR/ Paced on tele, lungs CTA/ no resp.difficulty noted, replacing potassium per protocol, repositioning and providing incontinent cares as needed, bed alarm is on and call light in reach, will continue to monitor closely
[2021-08-23 11:42] VITALS: BP 153/693; PULSE 63; TEMP 97.3
[2021-08-23 16:17] VITALS: BP 124/53; PULSE 61; TEMP 97.5
[2021-08-23 20:07] VITALS: BP 140/74; PULSE 79; TEMP 97.4
[2021-08-24] VITALS (7 sets, daily range): BP systolic 123–182; BP diastolic 51–97; PULSE 57–62; TEMP 96.6–98
--- NOTE | 2021-08-24 04:29 | NUR ---
ASSESSMENT COMPLETE FOR THIS SHIFT. PT RESTING IN BED STARING AT THE TV. PT DID NOT SEEM TO BE IN DISCOMFORT. VSS FOR HIM. NEURO STATUS REMAINS THE SAME. PT JUST TALKS ABOUT RANDOM THINGS OUT OF THE BLUE. Q2 TURNS PERFORMED. INCONTINENT CARE PROVIDED. BED ALARM ON. WILL CONTINUE TO MONITOR CLOSELY. CALL LIGHT WITHIN REACH.
[2021-08-24 06:41] LABS: GRAN # 1.5 K/mm3 (1.4-6.5); LYMPH # 0.6 K/mm3 (1.2-3.4); MEAN CELL VOLUME 86 fl (80.0-100.0); MEAN CORPUSCULAR HEMOGLOBIN 26 pg (27-31); MEAN CORPUSCULAR HGB CONC 30 g/dl (33.0-37.0); MEAN PLATELET VOLUME 10.1 fl (7.4-10.4); MONO # 0.2 K/mm3 (0.1-0.6); MONO % 9.6 % (1.7-9.3); PLATELET COUNT 145 K/mm3 (130-400); RED BLOOD COUNT 3.83 M/mm3 (4.20-5.60); REDCELL DISTRIBUTION WIDTH-CV 15.1 % (11.5-14.5)
[2021-08-24 06:58] LABS: CALCIUM 8.7 mg/dL (8.4-10.2); CREATININE, serum 0.63 mg/dL (0.72-1.25); POTASSIUM 4.1 mmol/L (3.5-4.5)
--- NOTE | 2021-08-24 08:15 | NUR ---
Shift assessment complete. Pt resting in bed, daughter at bedside. Alert, oriented to self only. Follows commands w/repeated prompting. Generalized weakness. PERRLA. Vitals stable. Denies needs. Call light in reach and bed alarm on.
[2021-08-24] MEDS ORDERED: OMNICEF 300MG300 MG PO (08:55)
--- NOTE | 2021-08-24 10:13 | NUR ---
The PA notified PANCHO that the team is ready to discharge the patient today. PANCHO met with the patient and his daughter, Griffin. Griffin shared how they are wanting to get the patient switched to a different facility. They would prefer [facility]. Griffin states that the case manager specialist with Dr. Rodriguez tried to get the patient into [facility] and [facility] in the past, but they both declined. PANCHO explained how since the patient is ready to discharge today, we would have to look at the patient going back to [facility] today. PANCHO informed her how the case manager specialist with Dr. Rodriguez can continue to assist with sending referrals to other facilities after he leaves here. Griffin verbalized understanding and is agreeable with the patient going back to [facility]Memory Care unit today. SW attempted to contact Kandace, marriage and family social worker, with Dr. Rodriguez. SW left her a voicemail. SW attempted to contact Maribell at [facility]. SW left her a voicemail. SW contacted [facility] and confirmed the patient is from their assisted living/memory care unit. The patient is to discharge today, 08/24, back to [facility]isted [facility]Memory Care Unit. Transportation was scheduled at 1300, via [employer]. PANCHO informed the patient's RN and his daughter of the time. No additional needs at this time.
--- NOTE | 2021-08-24 12:50 | NUR ---
IV to left wrist removed and tip intact. Report called to Stalin and all questions answered.
--- NOTE | 2021-08-24 14:51 | NUR ---
Pt assisted into wheelchair and escorted out at this time. All belongings taken by pt's daughter and [facility]
== END 2021-08-24 14:52 ==
LOC: COL.ER 12:24 → MEDICAL 15:16
PROVIDERS: Emergency Medicine; Physician Assistant; ADMIT Internal Medicine
DX: N39.0 Urinary tract infection, site not specified (principal); E87.0 Hyperosmolality and hypernatremia; E86.0 Dehydration; E87.8 Other disorders of electrolyte and fluid balance, not elsewhere classified; D64.9 Anemia, unspecified; G93.40 Encephalopathy, unspecified; Z20.822 Contact with and (suspected) exposure to COVID-19; G20 Parkinson's disease; F02.81 Dementia in other diseases classified elsewhere, unspecified severity, with behavioral disturbance; D72.819 Decreased white blood cell count, unspecified; R53.1 Weakness; I25.10 Atherosclerotic heart disease of native coronary artery without angina pectoris; I48.91 Unspecified atrial fibrillation; I11.0 Hypertensive heart disease with heart failure; I50.9 Heart failure, unspecified; E78.5 Hyperlipidemia, unspecified; Z66 Do not resuscitate; G47.33 Obstructive sleep apnea (adult) (pediatric); G89.29 Other chronic pain; H40.9 Unspecified glaucoma; Z91.19 Patient's noncompliance with other medical treatment and regimen; K21.9 Gastro-esophageal reflux disease without esophagitis; Z91.81 History of falling; Z95.1 Presence of aortocoronary bypass graft; Z79.82 Long term (current) use of aspirin; Z95.0 Presence of cardiac pacemaker; Z95.5 Presence of coronary angioplasty implant and graft; Z79.899 Other long term (current) drug therapy; Z79.01 Long term (current) use of anticoagulants
CPT/HCPCS: 99232-AI; 99239; G0378; J0696; J7030; J8540